=== PATIENT | male | born 1930 | race Caucasian/White ===

== ENCOUNTER 2016-10-18 11:13 | Emergency (ER) | payer OTHER ==
[~2016-10-18] VITALS: Ht 185.4 cm; Wt 60.0 kg
[~2016-10-18 11:13] MED LIST: ALLOPURINOL100 MG PO; ALLOPURINOL300 MG PO; ALTACE2.5 M1 PO; ALTACE2.5 MG PO; AMOXICILLIN500 MG PO; ASPIR 8181 M1 PO; ASPIRIN E.C.81 M1 PO; ATORVASTATIN CA10 MG PO; CARVEDILOL12.5 MG PO; COREG12.5 MG PO; COREG3.125 M1 PO; CYANOCOBALAM1000 MCG PO; Coreg PO; FLOMAX0.4 M1 PO; FLOMAX0.4 MG PO; GABAPENTIN100 MG PO; HYDROCODON-ACE1 EAC7 PO; LASIX20 MG PO; LIPITOR5 MG PO; LUMIGAN 0.50 DROP/22 BOTH EYES; LUMIGAN2.5 ML OP; Lipitor PO; NEURONTIN100 MG PO; PLAVIX75 MG PO; RAMIPRIL10 MG PO; RAMIPRIL2.5 MG PO; TEARS NATURALE30 ML OP; Tylenol Regular Stre PO; ULORIC40 MG PO; Zocor PO; Zyloprim PO
[2016-10-18 17:15] VITALS: BP 121/76
== END 2016-10-18 17:00 | disposition home or self-care (01) ==
LOC: EME 11:13
DX: S09.90XA Unspecified injury of head, initial encounter (principal); S00.81XA Abrasion of other part of head, initial encounter; S80.01XA Contusion of right knee, initial encounter; S40.211A Abrasion of right shoulder, initial encounter; W18.30XA Fall on same level, unspecified, initial encounter; Z87.442 Personal history of urinary calculi; I25.2 Old myocardial infarction; I10 Essential (primary) hypertension; E78.5 Hyperlipidemia, unspecified; Z79.82 Long term (current) use of aspirin; Z87.891 Personal history of nicotine dependence
CPT/HCPCS: 70450; 71020; 73090; 93005; 99281; 99285

== ENCOUNTER 2017-01-26 15:30 | Emergency (ER) | payer OTHER ==
[~2017-01-26] VITALS: Ht 180.3 cm; Wt 84.0 kg
[2017-01-26 16:20] LABS: HEMATOCRIT 38.5 % (38.0-50.0); MCH 32.8 PG (29.0-34.0); MCHC 34.3 G/DL (30.0-36.0); MCV 95.5 FL (86-99); MEAN PLAT.VOLUME 9.2 uM^3 (9.0-12.4); PLATELET COUNT 185 K/uL (156-360); RBC DIS.WIDTH-CV 12.8 % (11.8-14.6); RBC DIS.WIDTH-SD 44.2 % (39-53); RED BLOOD COUNT 4.03 M/uL (4.00-5.50); WHITE BLOOD COUNT 6.7 K/uL (4.1-10.2)
[2017-01-26 16:30] LABS: CHLORIDE 104 mEq/L (99-109); SODIUM 138 mEq/L (136-147)
[2017-01-26 16:31] LABS: GLUCOSE 102 mg/dL (70-99)
[2017-01-26 16:33] LABS: ANION GAP 10 MEQ/L (2-14)
[2017-01-26 16:35] LABS: GFR ESTIMATE (CALCULATED) > 59 mL/min/
[2017-01-26 16:36] LABS: UREA NITROGEN (BUN) 39 mg/dL (9-23)
[2017-01-26 16:42] LABS: TROP-I INTERPRETATION NEGATIVE; TROPONIN-I 0.02 ng/mL (0.0-0.30)
[2017-01-26 17:33] LABS: ADD MIUA? YES; BILIRUBIN NEGATIVE; BLOOD SMALL; COLOR YELLOW ((YELLOW)); GLUCOSE (STRIP) NEGATIVE; KETONES NEGATIVE; LEUKOCYTES NEGATIVE; NITRITE NEGATIVE; PROTEIN (STRIP) NEGATIVE; SPECIFIC GRAVITY 1.011 (1.000-1.030); UROBILINOGEN 0.2 MG/DL (0.2-1.0)
[2017-01-26 17:41] LABS: BACTERIA NONE SEEN /HPF; EPITHELIAL CELLS RARE /HPF; HYALINE CASTS 0-5 /LPF; MUCUS TRACE /LPF; RED BLOOD CELLS 0-5 /HPF (0-5); WHITE BLOOD CELLS 0-5 /HPF (0-5)
[2017-01-26 18:47] VITALS: BP 119/61
== END 2017-01-26 18:48 | disposition home or self-care (01) ==
LOC: EME 15:30
PROVIDERS: Nurse Practitioner Family
DX: G50.0 Trigeminal neuralgia (principal); Z86.73 Personal history of transient ischemic attack (TIA), and cerebral infarction without residual deficits; I10 Essential (primary) hypertension; E78.5 Hyperlipidemia, unspecified; I25.2 Old myocardial infarction; Z95.1 Presence of aortocoronary bypass graft; Z95.0 Presence of cardiac pacemaker; Z87.891 Personal history of nicotine dependence; Z79.82 Long term (current) use of aspirin; Z87.442 Personal history of urinary calculi; Z88.8 Allergy status to other drugs, medicaments and biological substances
CPT/HCPCS: 70450; 80048; 81003; 84484; 85027; 93005; 99281; 99284